=== PATIENT | male | born 1950 | race Hispanic/Latino ===

== ENCOUNTER 2019-10-18 09:43 | Observation (INO) | payer MEDICARE ==
[~2019-10-18] VITALS: Ht 167.6 cm; Wt 79.4 kg
[2019-10-18 10:35] LABS: BASOPHILS # (AUTO) 0.1 (0.0-0.1); BASOPHILS % 0.8 % (0.0-1.0); EOSINOPHILS # (AUTO) 0.1 (0.0-0.4); EOSINOPHILS % 1.7 % (0.0-6.0); HEMATOCRIT 38.1 % (38.2-49.6); HEMOGLOBIN 13.2 g/dL (14.0-18.0); LYMPHOCYTES # (AUTO) 1.7 (1.0-3.2); LYMPHOCYTES % 21.8 % (18.0-39.1); MEAN CORPUSCULAR HGB CONC 34.6 g/dL (31-35); MEAN CORPUSCULAR VOLUME 92.3 fL (81-99); MONOCYTES # (AUTO) 0.5 (0.2-0.8); MONOCYTES % 6.9 % (4.4-11.3); NEUTROPHILS # (AUTO) 5.4 (2.1-6.9); NEUTROPHILS % 68.5 % (38.7-80.0); PLATELET COUNT 229 x10e3/uL (140-360); RED BLOOD COUNT 4.13 x10e6/uL (4.3-5.7); RED CELL DISTRIBUTION WIDTH 12.2 % (11.7-14.4)
[2019-10-18 10:47] LABS: ALANINE AMINOTRANSFERASE 22 IU/L (0-55); ALBUMIN 4.1 g/dL (3.5-5.0); ALBUMIN/GLOBULIN RATIO 1.4 (0.8-2.0); ALKALINE PHOSPHATASE 77 IU/L (40-150); ANION GAP 13.7 mmol/L (8-16); BLOOD UREA NITROGEN 17 mg/dL (7-26); BUN/CREATININE RATIO 22 (6-25); CARBON DIOXIDE 22 mmol/L (22-29); CHLORIDE 107 mmol/L (98-107); CREATINE KINASE 132 IU/L (30-200); CREATININE, SERUM 0.78 mg/dL (0.72-1.25); EST GLOMERULAR FILTRATION RATE > 60 ML/MIN (60-); GLUCOSE 106 mg/dL (74-118); POTASSIUM 3.7 mmol/L (3.5-5.1); SODIUM 139 mmol/L (136-145)
--- NOTE | 2019-10-18 11:20 | Diagnostic Imaging Report ---
EXAMINATION: CHEST SINGLE (PORTABLE) INDICATION: Chest pain COMPARISON: None FINDINGS: LINES/TUBES:EKG leads overlie the chest. LUNGS:The lungs are well-inflated. No focal consolidation or pulmonary edema. PLEURA:No pleural effusion or pneumothorax. MEDIASTINUM:The cardiomediastinal silhouette appears normal in size and shape. BONES/SOFT TISSUES:No acute osseous injury. ABDOMEN:No free air under the diaphragm. IMPRESSION: No focal pneumonia or pulmonary edema. Signed by: Abisai Dawson MD on 10/18/2019 11:17 AM
--- NOTE | 2019-10-18 11:34 | Emergency Department Note ---
History of Present Illnes History of Present Illness Chief Complaint: General Medicine Complaints History of Present Illness This is a 69 year old male sent to the ED by primary care doctor for concerns of abnormal EKG and chest pain. Patient denies any complaints currently CT had intermittent chest pain earlier. EKG done a primary care is 's office shows sinus bradycardia at 53 bpm.. Chief Complaint Comment sent by dr maude hartley for abnormal ekg c/o constant non radiating cp started 2 days ago pt waited till he had appt with pcp denies sob denies bianchi/blurred/ringing in ears/back pain/jaw pain/abd pain c/o dizziness denies photosensitivity denies sensitivity to sound denies n/v states he is not currently dizzy former smoker denies etoh denies illegal drug use denies mi/cva hx of htn/cholesterol/bph culturalink used to translate Historian: Patient Arrival Mode: Car Teller Vault Required: No Onset (how long ago): hour(s) Radiation: Reports non-radiation Onset quality: unable to specify Progression: unable to specify Past Medical/Family History Physician Review I have reviewed the patient's past medical and family history. Any updates have been documented here. Past Medical History Recent Fever: No Clinical Suspicion of Infectio: No New/Unexplained Change in Ment: No Past Medical History: Hypertension, Hyperlipedemia Other Medical History: bph Past Surgical History: Appendectomy Social History Physically hurt or threatened: No Review of Systems Review of Systems Constitutional: Reports as per HPI EENTM: Reports no symptoms Cardiovascular: Reports as per HPI, Reports chest pain Respiratory: Reports no symptoms Gastrointestinal: Reports no symptoms Genitourinary: Reports no symptoms Musculoskeletal: Reports no symptoms Integumentary: Reports no symptoms Neurological: Reports no symptoms Psychological: Reports no symptoms Endocrine: Reports no symptoms Hematological/Lymphatic: Reports no symptoms Physical Exam Related Data Allergies: Coded Allergies: No Known Allergies (Unverified , 10/18/19) Triage Vital Signs Vital Signs Date Time Temp Pulse Resp B/P (MAP) Pulse Ox O2 Delivery O2 Flow Rate FiO2 10/18/19 09:48 97.9 74 18 124/64 100 Room Air Vital signs reviewed: Yes Physical Exam CONSTITUTIONAL Constitutional: Present well-developed, Present well-nourished HENT HENT: Present normocephalic, Present atraumatic, Present oropharynx clear/moist, Present nose normal HENT L/R: Present left ext ear normal, Present right ext ear normal EYES Eyes: Reports PERRL, Reports conjunctivae normal NECK Neck: Present ROM normal PULMONARY Pulmonary: Present effort normal, Present breath sounds normal CARDIOVASCULAR Cardiovascular: Present regular rhythm, Present heart sounds normal, Present capillary refill normal, Present normal rate GASTROINTESTINAL Abdominal: Present soft, Present nontender, Present bowel sounds normal GENITOURINARY Genitourinary: Present exam deferred SKIN Skin: Present warm, Present dry MUSCULOSKELETAL Musculoskeletal: Present ROM normal NEUROLOGICAL Neurological: Present alert, Present oriented x 3, Present no gross motor or sensory deficits PSYCHOLOGICAL Psychological: Present mood/affect normal, Present judgement normal Results Laboratory Result Diagram: 10/18/19 1000 10/18/19 1000 Laboratory Laboratory Tests Test 10/18/19 10:00 White Blood Count 7.80 x10e3/uL (4.8-10.8) Red Blood Count 4.13 x10e6/uL (4.3-5.7) Hemoglobin 13.2 g/dL (14.0-18.0) Hematocrit 38.1 % (38.2-49.6) Mean Corpuscular Volume 92.3 fL (81-99) Mean Corpuscular Hemoglobin 32.0 pg (28-32) Mean Corpuscular Hemoglobin Concent 34.6 g/dL (31-35) Red Cell Distribution Width 12.2 % (11.7-14.4) Platelet Count 229 x10e3/uL (140-360) Neutrophils (%) (Auto) 68.5 % (38.7-80.0) Lymphocytes (%) (Auto) 21.8 % (18.0-39.1) Monocytes (%) (Auto) 6.9 % (4.4-11.3) Eosinophils (%) (Auto) 1.7 % (0.0-6.0) Basophils (%) (Auto) 0.8 % (0.0-1.0) Neutrophils # (Auto) 5.4 (2.1-6.9) Lymphocytes # (Auto) 1.7 (1.0-3.2) Monocytes # (Auto) 0.5 (0.2-0.8) Eosinophils # (Auto) 0.1 (0.0-0.4) Basophils # (Auto) 0.1 (0.0-0.1) Absolute Immature Granulocyte (auto 0.02 x10e3/uL (0-0.1) Sodium Level 139 mmol/L (136-145) Potassium Level 3.7 mmol/L (3.5-5.1) Chloride Level 107 mmol/L (98-107) Carbon Dioxide Level 22 mmol/L (22-29) Anion Gap 13.7 mmol/L (8-16) Blood Urea Nitrogen 17 mg/dL (7-26) Creatinine 0.78 mg/dL (0.72-1.25) Estimat Glomerular Filtration Rate > 60 ML/MIN (60-) BUN/Creatinine Ratio 22 (6-25) Glucose Level 106 mg/dL (74-118) Calcium Level 9.0 mg/dL (8.4-10.2) Total Bilirubin 0.5 mg/dL (0.2-1.2) Aspartate Amino Transf (AST/SGOT) 22 IU/L (5-34) Alanine Aminotransferase (ALT/SGPT) 22 IU/L (0-55) Alkaline Phosphatase 77 IU/L (40-150) Creatine Kinase 132 IU/L (30-200) Creatine Kinase MB 1.50 ng/mL (0-5.0) Troponin I 0.008 ng/mL (0-0.300) Total Protein 7.1 g/dL (6.5-8.1) Albumin 4.1 g/dL (3.5-5.0) Globulin 3.0 g/dL (2.3-3.5) Albumin/Globulin Ratio 1.4 (0.8-2.0) Lab results reviewed: Yes Imaging Imaging results reviewed: Yes Procedures 12 Lead ECG Interpretation ECG Interpretation : ECG: ECG 1 Teller Vault: Interpreted by ED physician Rhythm: sinus rhythm Rate: normal QRS axis: normal ST segments normal: Yes T waves normal: Yes Clinical Impression: normal ECG Assessment & Plan Medical Decision Making MDM 69-year-old male sent from his primary care doctor's office for abnormal EKG. Patient noted asymptomatic sinus bradycardia. Blood pressure is normal. No cause of infection appreciated on labwork. Patient admitted for serial cardiac enzymes and telemetry monitoring. Dr. Vergara accepted consult, further consultation for cardiology to be done by primary team Assessment & Plan Final Impression: (1) Bradycardia (2) Chest pain Depart Disposition: ADMITTED Last Vital Signs Date Time Temp Pulse Resp B/P (MAP) Pulse Ox O2 Delivery O2 Flow Rate FiO2 10/18/19 09:48 97.9 74 18 124/64 100 Room Air HESHAM ALATORRE DO Oct 18, 2019 11:34
--- OUTSIDE RECORDS SUMMARY | 2019-10-18 11:35 | XMS REPORT | Summary of Care ---
Author Author JAMES Vanegas, MIGUEL SYLVESTER Organization Unknown Address Unknown Phone Unavailable Care Team Providers Care Tactical Air Control Party Manager Name Role Phone JAMES Vanegas, MARVIN Unavailable Unavailable FAB CAI MD Unavailable Unavailable MARVIN RAMIREZ MD Unavailable Unavailable Unavailable Unavailable Functional Status Name Dates Details Functional status health issues are not documented Status: Name Dates Details Cognitive status health issues are not d ocumented Status: Problems Name Dates Details Hypertension, benign (401.1, I10) Status: Active Hyperlipidemia, mild (272.4, E78.5) Status: Active Elevated prostate specific antigen (PSA) (790.93, R97.20) Status: Active Benign localized hyperplasia of prostate with urinary obstruction (600.21, N40.1) Status: Active Medications Name Dates Details Tamsulosin HCl - 0.4 MG Oral Capsule TAKE 1 CAPSULE DAILY Quantity: 30 JAMES Vanegas, RUN * Start : 19-Jan-2018 Active Finasteride 5 MG Oral Tablet TAKE 1 TABLET BY MOUTH EVERY DAY * Quantity: 30 Refills: 0 JAMES Vanegas, RUN * Start : 19-Jan-2018 Active Naproxen Sodium 500 MG TBCR TAKE 1 TABLET TWICE DAILY * Refills: 0 Active Sulfamethoxazole-Trimethoprim 800-160 MG Oral Tablet TAKE 1 TABLET TWICE DAILY * Quantity: 10 Refills: 0 JAMES Vanegas, RUN * Start : 01-May-2018 Active Allergies and Adverse Reactions Name Dates Details No Known Drug Allergies (Allergy) Status : Active Procedures Procedure Dates Details History of Appendectomy Completed Immunization Name Dates Details Immunizations not documented Social History Name Dates Details - Status: Name Dates Details Unknown if ever smoked Vital Signs Date Test Result Details [id number] BP Systolic 147 mm[Hg] Status: Comments: Lo cation: LUE; Position: Sitting BP Diastolic 73 mm[Hg] Status: Comments: Lo cation: LUE; Position: Sitting Height 66 in Status: Weight 186 lb Status: Body Mass Index Calculated 30.02 kg/m2 Status: Body Surface Area Calculated 1.94 m2 Status: Temperature 98.6 f Status: Comments: Me thod: Temporal Heart Rate 64 /min Status: Results Date Description Value Details Results not documented Plan of Care Name Dates Details Planned Observations Planned Goals not documented Planned Encounters Appointment; MARVIN RAMIREZ M.D. On: 22-Nov-2019 13:00 Interventions Provided Plan* 3 mo. follow up of button TURP for BPH * -pt reports improved symptoms. urination 2x during day and 2x during night * -discontinue tamsulosin and finasteride and see if symptoms are still good. * -RTC in 1 year for continued follow up or PRN Instructions Name Dates Details Instructions not documented Encounters Appointment; JAEL VILLEDA M. D. Encounter Diagnosis: Problem not documented On: 19-Jan-2018 13:30 Appointment; MARVIN RAMIREZ M.D. Encounter Diagnosis: Problem not documented On: 19-Jan-2018 13:45 Appointment; MARVIN RAMIREZ M.D. Encounter Diagnosis: Problem not documented On: 20-Mar-2018 13:30 Appointment; MARVIN RAMIREZ M.D. Encounter Diagnosis: Problem not documented On: 01-May-2018 14:00 Appointment; MARVIN RAMIREZ M.D. Encounter Diagnosis: Problem not documented On: 29-May-2018 14:15 Appointment; MARVIN RAMIREZ M.D. Encounter Diagnosis: Problem not documented On: 11-Aug-2018 10:00 Appointment; UROLOGY, NURSE Encounter Diagnosis: Problem not documented On: 17-Aug-2018 10:30 Appointment; MARVIN RAMIREZ M.D. Encounter Diagnosis: Problem not documented On: 27-Nov-2018 14:45
--- OUTSIDE RECORDS SUMMARY | 2019-10-18 11:35 | XMS REPORT | Continuity of Care Document ---
Author Author [facility] t Organization [facility] Address [address] [place] [address] Phone Unavailable Care Team Providers Care Pourer Off Name Role Phone Fede ALATORRE Attphys Unavailable MARVIN RAMIREZ M.D. Attphys Unavailable UROLOGY, NURSE Attphys Unavailable JAEL VILLEDA M.D. Attphys Unavailab YUE Dexter Admphys Unavailable Problems Condition Name Condition Details Condition Category Status Onset Date Resolution Date Last Treatment Date Treating Clinician Comments Source Hypertension, benign Hypertension, benign Problem Active [facility] Hyperlipidemia, mild Hyperlipidemia, mild Problem Active [facility] Benign localized hyperplasia of prostate with urinary obstruction Benign localized hyperplasia of prostate with urinary obstruction Problem Active [facility] Elevated prostate specific antigen (PSA) Elevated pros wood specific antigen (PSA) Problem Active [facility] Allergies, Adverse Reactions, Alerts This patient has no known allergies or adverse reactions. Medications Ordered Medication Name Filled Medication Name Start Date Stop Da te Current Medication? Ordering Clinician Indication Dosage Frequency Signature (SIG) Comments Components Source Sulfamethoxazole-Trimethoprim 800-160 MG Oral Tablet S ulfamethoxazole- Trimethoprim 800-160 MG Oral Tablet 2018-05-01 00:00:00 Yes MARVIN RAMIREZ M.D. 1 Q0.5D TAKE [address] [facility] Tamsulosin HCl - 0.4 MG Oral Capsule Tamsulosin HCl - 0.4 MG Oral Capsule 2018-01-19 00:00:00 Yes MARVIN RAMIREZ M.D. 1 QD TAKE 1 CAPS ULE DAILY [facility] Finasteride 5 MG Oral Tablet Finasteride 5 MG Oral Tablet 2018-01-05 5 00:00:00 Yes MARVIN RAMIREZ M.D. TAKE 1 TABLET BY MOUTH EVERY DAY [facility] Naproxen Sodium 500 MG TBCR Naproxen Sodium 500 MG TBCR Yes 1 Q0.5D TAKE 1 TABLET TWICE DAILY [facility] Vital Signs Vital Name Observation Time Observation Value Comments Source BP Systolic 2018-11-27 14:40:00 147 mm[Hg] Location: LUE; Positi on: Sitting [facility] BP Diastolic 2018-11-27 14:40:00 73 mm[Hg] Location: LUMikhail; Positi on: Sitting [facility] Height 2018-11-27 14:40:00 66 [in_us] [facility] Weight 2018-11-27 14:40:00 186 [lb_av] [facility] Body Mass Index Calculated 2018-11-27 14:40:00 30.02 kg/m2 [facility] Temperature 2018-11-27 14:40:00 98.6 [degF] Method: [facility] Heart Rate 2018-11-27 14:40:00 64 /min [facility] Procedures Procedure Date / Time Performed Performing Clinician Sour e History of Appendectomy [facility] Plan of Care Planned Activity Planned Date Details Comments Source Future Appointment 2019-11-22 13:00:00 [facility] Encounters Start Date/Time End Date/Time Encounter Type Admission Type Attendi [facility] Care Department Encounter ID Source 2018-11-27 14:45:00 2018-11-27 14:45:00 Appointment; MARVIN RAMIREZ M.D . WANG, RUN, M.D. [facility] Urology [facility] [id number] [facility] 2018-08-17 10:30:00 2018-08-17 10:30:00 Appointment; UROLOGY, NURSE UROLOGY, NURSE [facility] [id number] [facility] 2018-08-11 10:00:00 2018-08-11 10:00:00 Appointment; MARVIN RAMIREZ M.D . WANG, RUN, M.D. [facility] [id number] [facility] 2018-05-29 14:15:00 2018-05-29 14:15:00 Appointment; MARVIN RAMIREZ M.D . WANG, RUN, M.D. [facility] [id number] [facility] 2018-05-01 14:00:00 2018-05-01 14:00:00 Appointment; MARVIN RAMIREZ M.D . WANG, RUN, M.D. [facility] UTP [id number] [facility] 2018-03-20 13:30:00 2018-03-20 13:30:00 Appointment; MARVIN RAMIREZ M.D . WANG, RUN, M.D. [facility] UTP [id number] [facility] 2018-01-19 13:45:00 2018-01-19 13:45:00 Appointment; MARVIN RAMIREZ M.D . WANG, RUN, M.D. [facility] UTP [id number] [facility] 2018-01-19 13:30:00 2018-01-19 13:30:00 Appointment; JAEL CHRISTINE M.D. SAAVEDRA-BELAUNDE, JOSE, M.D. [facility] UTP [id number] 85 [facility] Results Test Description Test Time Test Comments Results Result Comments Source CHEST SINGLE (PORTABLE) 2019-10-18 11:17:00 [place] [address] Patient Name: MIGUEL BOWIE MR #: [id number] : 1950 Age/Sex: 69/M Req #: [id number] Adm Physician: Ordered by: HESHAM ALATORRE DO Report #: [id number] Location: ER Room/Bed: Procedure: [id number] DX/CHEST SINGLE (PORTABLE) Exam Date: 10/18/19 Exam Time: 1041 REPORT STATUS: Signed EXAMINATION: CHEST SINGLE (PORTABLE) INDICATION: Chest pain COMPARISON: None FINDINGS: LINES/TUBES:EKG leads overlie the chest. LUNGS:The lungs are well-inflated. No focal consolidation or pulmonary edema. PLEURA:No pleural effusion or pneumothorax. MEDIASTINUM:The cardiomediastinal silhouette appears normal in size and shape. BONES/SOFT TISSUES:No acute osseous injury. ABDOMEN:No free air under the diaphragm. IMPRESSION: No focal pneumonia or pulmonary edema. Signed by: Hollis Cool MD on 10/18/2019 11:17 AM Dictated By: HOLLIS COOL MD 16 Transcribed By: GEM on 10/18/191116 COPY TO: HESHAM ALATORRE,
--- OUTSIDE RECORDS SUMMARY | 2019-10-18 11:43 | XMS REPORT | Continuity of Care Document ---
Author Author [facility] t Organization [facility] Address [address] [place] [address] Phone Unavailable Care Team Providers Care Retoucher Photoengraving Name Role Phone Fede ALATORRE Attphys Unavailable MARVIN RAMIREZ M.D. Attphys Unavailable UROLOGY, NURSE Attphys Unavailable JAEL VILLEDA M.D. Attphys Unavailab YUE Dexter Admphys Unavailable Problems Condition Name Condition Details Condition Category Status Onset Date Resolution Date Last Treatment Date Treating Clinician Comments Source Hypertension, benign Hypertension, benign Problem Active [facility] Hyperlipidemia, mild Hyperlipidemia, mild Problem Active [facility] Benign localized hyperplasia of prostate with urinary obstruction Benign localized hyperplasia of prostate with urinary obstruction Problem Active [facility] Elevated prostate specific antigen (PSA) Elevated pros wood specific antigen (PSA) Problem Active [facility] Allergies, Adverse Reactions, Alerts [...] 1 Q0.5D TAKE 1 TABLET TWICE DAILY [facility] Tamsulosin HCl - 0.4 MG Oral Capsule Tamsulosin HCl - 0.4 MG Oral Capsule 2018-01-19 00:00:00 Yes MARVIN RAMIREZ M.D. 1 QD TAKE 1 CAPS ULE DAILY [facility] Finasteride 5 MG Oral Tablet Finasteride 5 MG Oral Tablet 2018-01-05 5 00:00:00 Yes MARVIN RAMIREZ M.D. TAKE 1 TABLET BY MOUTH EVERY DAY [facility] Naproxen Sodium 500 MG TBCR Naproxen Sodium 500 MG TBCR Yes 1 Q0.5D TAKE 1 TABLET TWICE DAILY [facility] Vital Signs Vital Name Observation Time Observation Value Comments Source BP Systolic 2018-11-27 14:40:00 147 mm[Hg] Location: LUE; Positi on: Sitting [facility] BP Diastolic 2018-11-27 14:40:00 73 mm[Hg] Location: LUMikhail; Positi on: Sitting [facility] Height 2018-11-27 14:40:00 66 [in_us] [facility] Weight 2018-11-27 14:40:00 186 [lb_av] [facility] Body Mass Index Calculated 2018-11-27 14:40:00 30.02 kg/m2 [facility] Temperature 2018-11-27 14:40:00 98.6 [degF] Method: [facility] Heart Rate 2018-11-27 14:40:00 64 /min [facility] Procedures Procedure Date / Time Performed Performing Clinician Sour e History of Appendectomy [facility] Plan of Care Planned Activity Planned Date Details Comments Source Future Appointment 2019-11-22 13:00:[facility] Encounters Start Date/Time End Date/Time Encounter Type Admission Type Attendi [facility] Care Department Encounter ID Source 2018-11-27 14:45:00 2018-11-27 14:45:00 Appointment; MARVIN RAMIREZ M.D . WANG, RUN, M.D. [facility] Urology [facility] [id number] [facility] 2018-08-17 10:30:00 2018-08-17 10:30:00 Appointment; UROLOGY, NURSE UROLOGY, NURSE [facility] [id number] [facility] 2018-08-11 10:00:00 2018-08-11 10:00:00 Appointment; MARVIN RAMIREZ M.D . WANG, RUN, M.[facility]. [facility] [id number] [facility] 2018-05-29 14:15:00 2018-05-29 14:15:00 Appointment; MARVIN RAMIREZ M.D . WANG, RUN, M.D. [facility] [id number] [facility] 2018-05-01 14:00:00 2018-05-01 14:00:00 Appointment; MARVIN RAMIREZ M.D . WANG, RUN, M.D. [facility] UTP [id number] [facility] 2018-03-20 13:30:00 2018-03-20 13:30:00 Appointment; MARVIN RAMIREZ M.D . WANG, RUN, M.D. [facility] UTP [id number] [facility] 2018-01-19 13:45:00 2018-01-19 13:45:00 Appointment; MARVIN RAMIREZ M.D . WANG, RUN, M.D. [facility] UTP [id number] [facility] 2018-01-19 13:30:00 2018-01-19 13:30:00 Appointment; JAEL CHRISTINE M.D. SAAVEDRA-BELAUNDE, JOSE, M.D. [facility] UTP [id number] 85 [facility] Results Test Description Test Time Test Comments Results Result Comments Source CHEST SINGLE (PORTABLE) 2019-10-18 11:17:00 [place] [address] Patient Name: MIGUEL BOWIE MR #: [id number] : 1950 Age/Sex: 69/M Req #: [id number] Adm Physician: Ordered by: HESHAM ALATORRE DO Report #: [id number] Location: ER Room/Bed: Procedure: [id number] DX/CHEST SINGLE (PORTABLE) Exam Date: 10/18/19 Exam [...] By: HOLLIS COOL MD 16 Transcribed By: EGM on 10/18/191116 COPY TO: HESHAM ALATORRE,
--- NOTE | 2019-10-18 13:16 | NUR ---
ASSUMED CARE. PATIENT ARRIVED TO UNIT AT APPROXIMATELY 1259. ACYANOTIC. NO DISTRESS NOTED. CALL LIGHT IN REACH. SIDE RAILS UP X2. BED LOW AND LOCKED.
[2019-10-18 13:30] VITALS: BP 145/79
[2019-10-18 16:38] VITALS: BP 137/75
[2019-10-18 17:05] LABS: CREATINE KINASE 115 IU/L (30-200)
[2019-10-18] MEDS ORDERED: FINASTERIDE5 MG PO (17:28)
[2019-10-18] MEDS ORDERED: PRAVACHOL40 MG PO (17:28)
[2019-10-18] MEDS ORDERED: AMLODIPINE BESY10 MG PO (17:28)
[2019-10-18] MEDS ORDERED: IBUPROFEN400 MG PO (17:28)
[2019-10-18] MEDS ORDERED: LISINOPRIL10 MG PO (17:28)
[2019-10-18] MEDS ORDERED: TRAZODONE HCL50 MG PO (17:28)
--- NOTE | 2019-10-18 18:11 | Consultation ---
DATE OF CONSULTATION: 10/18/2019 Cardiology Consult Note REASON FOR CONSULT: Chest pain. CHIEF COMPLAINT: Chest pain. HISTORY OF PRESENT ILLNESS: A 69-year-old man, history of hypertension, hyperlipidemia, presents with left-sided chest discomfort for the past 2 days. No associated shortness of breath. No previous history of CAD or ID. No history of diabetes. Remote history of smoking. Father from an ID. REVIEW OF SYSTEMS: As per HPI, otherwise negative. PAST MEDICAL HISTORY: As per HPI. SOCIAL HISTORY: Does not smoke, drink, or abuse drugs. FAMILY HISTORY: Father had ID and from it. OUTPATIENT MEDICATIONS: Reviewed. ALLERGIES: NO KNOWN ALLERGIES. PHYSICAL EXAMINATION: VITAL SIGNS: Temperature afebrile, pulse 62, respiratory rate 18, blood pressure 137/75, and saturating 98% on room air. GENERAL: Elderly male, in no acute distress. CARDIOVASCULAR: Regular rate and rhythm. No murmurs, rubs, or gallops. LUNGS: Clear to auscultation bilaterally. ABDOMEN: Soft, nontender, and nondistended. NEURO AND PSYCH: Alert and oriented to person, place, and time. Normal affect. INPATIENT MEDICATIONS: Reviewed. LABORATORY DATA: Reviewed. Troponins negative x1. IMAGING DATA: Reviewed. Chest x-ray normal. TELEMETRY DATA: Reviewed, shows normal sinus rhythm. ASSESSMENT AND PLAN: Chest pain. PLAN: Chest pain with typical and atypical features. Given his age and risk factors, we will plan for nuclear stress test tomorrow morning and please obtain an echocardiogram. Second set of cardiac enzymes to rule out for acute ID. Thank you for this consult. We will continue to follow. MD TERESSA Omalley/ALEXANDRA /[id number]
[2019-10-18 20:00] VITALS: BP 121/70
[2019-10-18 21:00] VITALS: BP 121/70
[2019-10-19] VITALS: BP 136/70
[2019-10-19] MEDS ORDERED: ONDANSETRON HCL INJ 2MG/ML 2ML 2 MG/ML VIAL IV PRN (00:45)
[2019-10-19] MEDS ORDERED: HYDRALAZINE HCL 20 MG/ML VIAL IV PRN (00:45)
[2019-10-19] MEDS ORDERED: ACETAMINOPHEN 325 MG TAB PO PRN ×2 (00:45)
[2019-10-19] MEDS ORDERED: TRAMADOL HCL 50 MG TAB PO PRN (00:45)
--- NOTE | 2019-10-19 01:03 | History and Physical ---
CHIEF COMPLAINT: Chest pain. HISTORY OF PRESENT ILLNESS: This is a 69-year-old male, who has a history of hypertension, hyperlipidemia, came into the ED with complaints of left-sided chest pain ongoing for the last 2-3 days. He denies any associated diaphoresis, nausea, or vomiting. He also denies any shortness of breath. No prior history of CAD or TN in the past. The patient was seen and evaluated at bedside on the medical floor. He is currently doing well with no other issues at this time. Cardiology has been consulted. REVIEW OF SYSTEMS: Pertinent positives: Chest pain. The rest of 14-point review of systems are reviewed with the patient and are negative. ALLERGIES: NO KNOWN DRUG ALLERGIES. HOME MEDICATIONS: 1. Amlodipine. 2. Finasteride. 3. Ibuprofen. 4. Lisinopril. 5. Pravastatin. 6. Trazodone. PAST MEDICAL HISTORY: BPH, hypertension, hyperlipidemia. PAST SURGICAL HISTORY: Reports none. FAMILY HISTORY: Hypertension and diabetes. SOCIAL HISTORY: No drugs. No alcohol. Does not smoke. Good social support. PHYSICAL EXAMINATION: VITAL SIGNS: Temperature is 97.5, pulse 62, respiratory rate is 18, blood pressure 137/75, pulse ox 98% on room air. GENERAL: Not in acute distress. Alert and oriented x3. He is cooperative on examination. HEENT: Head; normocephalic, atraumatic. Eyes; pupils are equal, round, and reactive to light bilaterally. Extraocular movements intact bilaterally. Throat; no evidence of erythema or exudates in the posterior pharynx. Has poor dentition. NECK: Supple. Good range of motion. PULMONARY: Clear to auscultation bilaterally. No wheezing, no rales, no rhonchi, no crackles appreciated. CARDIOVASCULAR: Positive S1 and S2. No murmurs, rubs, or gallops appreciated. ABDOMEN: Soft, nondistended, and nontender to palpation. Bowel sounds present. MUSCULOSKELETAL: Strength is 5/5 throughout. No evidence of any muscle deficits on examination. SKIN: Intact. Warm to touch. Good cap refill. PSYCHIATRIC: Normal affect and mood. EXTREMITIES: No edema. Good range of motion throughout. LABORATORY FINDINGS: Show white count 7.8, hemoglobin 13, hematocrit is 38, platelets of 229. Chemistry; sodium 139, potassium 3.7, chloride 107, bicarb 22, anion gap of 13, BUN 17, creatinine is 0.78, glucose is 106, calcium is 9, total bilirubin was 0.5, AST 22, ALT 22, alkaline phosphatase 77. CK 132. Troponins are all negative. Total protein 7.1, albumin is 4.1. SEROLOGY: Coronavirus is pending. IMAGING STUDIES: Chest x-ray, no focal pneumonia or pulmonary edema. IMPRESSION: 1. Chest pain, rule out acute coronary syndrome. 2. Hyperlipidemia. 3. Hypertension. PLAN: At this time, trend cardiac enzymes, aspirin, statin, cardioprotective medications. Cardiology consultation. He is scheduled for 2D echo and cardiac stress testing in the morning. Resume same home medications. Lovenox for DVT prophylaxis. Heart healthy diet. Otherwise, n.p.o. after midnight. MD AUGUSTUS Starkey/MODL /[id number]
[2019-10-19 01:25] LABS: CREATINE KINASE MB 1.4 ng/mL (0-5.0)
[2019-10-19 04:00] VITALS: BP 137/66
[2019-10-19 06:41] LABS: BASOPHILS # (AUTO) 0.1 (0.0-0.1); BASOPHILS % 0.6 % (0.0-1.0); EOSINOPHILS # (AUTO) 0.2 (0.0-0.4); EOSINOPHILS % 2.7 % (0.0-6.0); HEMOGLOBIN 14.2 g/dL (14.0-18.0); LYMPHOCYTES # (AUTO) 1.5 (1.0-3.2); LYMPHOCYTES % 17.1 % (18.0-39.1); MEAN CORPUSCULAR HEMOGLOBIN 31.5 pg (28-32); MEAN CORPUSCULAR HGB CONC 33.8 g/dL (31-35); MEAN CORPUSCULAR VOLUME 93.1 fL (81-99); MONOCYTES # (AUTO) 0.7 (0.2-0.8); MONOCYTES % 7.7 % (4.4-11.3); NEUTROPHILS # (AUTO) 6.3 (2.1-6.9); NEUTROPHILS % 71.4 % (38.7-80.0); PLATELET COUNT 232 x10e3/uL (140-360); RED BLOOD COUNT 4.51 x10e6/uL (4.3-5.7); RED CELL DISTRIBUTION WIDTH 12.4 % (11.7-14.4)
[2019-10-19 07:05] LABS: ALANINE AMINOTRANSFERASE 22 IU/L (0-55); ALBUMIN 3.9 g/dL (3.5-5.0); ALBUMIN/GLOBULIN RATIO 1.2 (0.8-2.0); ALKALINE PHOSPHATASE 79 IU/L (40-150); BLOOD UREA NITROGEN 17 mg/dL (7-26); BUN/CREATININE RATIO 20 (6-25); CARBON DIOXIDE 24 mmol/L (22-29); CHLORIDE 107 mmol/L (98-107); CREATININE, SERUM 0.83 mg/dL (0.72-1.25); EST GLOMERULAR FILTRATION RATE > 60 ML/MIN (60-); GLUCOSE 96 mg/dL (74-118); SODIUM 140 mmol/L (136-145)
[2019-10-19 08:52] VITALS: BP 137/74
[2019-10-19] MEDS ORDERED: TRAZODONE HCL 50 MG TAB PO SCH (09:00)
[2019-10-19] MEDS ORDERED: LISINOPRIL 10 MG TAB PO SCH (09:00)
[2019-10-19] MEDS ORDERED: FINASTERIDE 5 MG TAB PO SCH (09:00)
[2019-10-19] MEDS ORDERED: AMLODIPINE BESYLATE 10 MG TAB PO SCH (09:00)
--- NOTE | 2019-10-19 09:55 | NUR ---
PT OFF UNIT FOR PROCEDURE IN SAFE CONDITION.
[2019-10-19] MEDS ORDERED: REGADENOSON 0.4 MG/5 ML SYR IV ONE (10:03)
--- NOTE | 2019-10-19 10:13 | NUR ---
BEDSIDE SHIFT REPORT RECEIVED FROM THE DRY CLIPPER TENDER RN. EDUCATED PT ABOUT FALL PRECAUTIONS. PT VERBALIZED UNDERSTANDING. CALL LIGHT WITH IN EASY REACH. BED IS LOW AND LOCKED. SIDE RAILS X2. PT IS ON NPO. ALL SAFETY MEASURES IN PLACE. PT DENIES NEEDS AT THIS TIME. Addendum: 10/19/19 at 1055 by Kalee Feng RN TIME IS 0700 10/19/2019
[2019-10-19 13:05] VITALS: BP 137/66
--- NOTE | 2019-10-19 13:05 | NUR ---
PT IS BACK TO THE UNIT AFTER PROCEDURE. PT DENIES NEEDS AT THIS TIME.
[2019-10-19 16:13] VITALS: BP 131/73
--- NOTE | 2019-10-19 17:45 | NUR ---
SALUD TO D/C PT PER DR. CARL AND DR. Colleen MENEZES.
[2019-10-19] MEDS ORDERED: ASPIRIN81 MG (18:08)
[2019-10-19] MEDS ORDERED: ONDANSETRON HCL 4 MG ORAL DISINTEGRATING TAB PO PRN (18:30)
--- NOTE | 2019-10-19 18:34 | NUR ---
PT DISCHARGED HOME SAFELY WITH FAMILY MEMBER. PT ESCORTED VIA WHEEL CHAIR TO THE PRIVATE AUTO AT THE FRONT ENTRANCE. TELE AND IV REMOVED. TIP INTACT. DRESSING APPLIED. RX GIVEN. DISCHARGE INSTRUCTIONS GIVEN AND PT VERBALIZED UNDERSTANDING. PT DENIED FURTHER NEEDS.
[2019-10-19] MEDS ORDERED: SIMVASTATIN 20 MG TAB PO SCH (21:00)
--- NOTE | 2019-10-19 23:18 | Discharge Summary ---
FINAL DISCHARGE DIAGNOSES: 1. Chest pain, atypical in nature. 2. Hyperlipidemia. 3. Hypertension. CONSULTANTS: Cardiology. PHYSICAL EXAMINATION: VITAL SIGNS: Temperature is 97.8, pulse 76, respiratory rate is 18, blood pressure is 131/73, pulse ox 96% on room air. LABORATORY FINDINGS: Show white count 8.7, hemoglobin 14, hematocrit 42, platelets of 232. Chemistry; sodium 140, potassium 4, chloride 107, bicarb 24, anion gap of 13, BUN 17 and creatinine 0.83, glucose is 96, calcium is 9, total bilirubin is 0.4, AST 20, ALT 22, alkaline phosphatase 79. Troponins were negative x3. Albumin was 3.9. Coronavirus was pending on discharge. IMAGING STUDIES: Chest x-ray shows no focal pneumonia or pulmonary edema. Cardiac stress testing was found to be a normal study. HOSPITAL COURSE: A 69-year-old male, who came into the ED with complaints of chest pain. The patient was admitted under observation and Cardiology was consulted. Cardiac enzymes were found to be negative. The patient had a cardiac stress test, which was found to be normal. The patient did not need any further cardiac workup. In fact, the patient was doing well with no complaints and had no more chest pain prior to being discharged to home. The patient will be discharged on cardioprotective medications including aspirin and statin and resume same home medications. The patient was cleared for discharge by Cardiology. On the day of discharge, vital signs were stable, labs reviewed and stable. The patient was seen evaluated and examined thoroughly on the day of discharge. No other complaints. The patient verbalized understanding and agrees to plan of care to follow up accordingly as an outpatient with primary care physician in 1 week and the meat curer in 2 weeks' time. MEDICATIONS: See med reconciliation. DISPOSITION: Home. CONDITION: Stable. DIET: Heart healthy. In the event of any worsening symptoms, the patient was advised to come back to the ED for further evaluation. Discharge summary took greater than 30 minutes. MD AUGUSTUS Starkey/ALEXANDRA /[id number]
== END 2019-10-19 18:34 | disposition home or self-care (01) ==
LOC: ER 10:15 → ERHOLD 11:06 → INTOOBSV 11:06 → MED/SURG3 13:01
PROVIDERS: ADMIT Internal Medicine; ATTEND Internal Medicine
DX: R07.89 Other chest pain (principal); I10 Essential (primary) hypertension; E78.5 Hyperlipidemia, unspecified; N40.0 Benign prostatic hyperplasia without lower urinary tract symptoms; R00.1 Bradycardia, unspecified; Z83.3 Family history of diabetes mellitus; Z82.49 Family history of ischemic heart disease and other diseases of the circulatory system; Z11.59 Encounter for screening for other viral diseases
CPT/HCPCS: 36415 ×2; 71045; 78452; 80053 ×2; 82550 ×2; 82553 ×2; 84484 ×2; 85025 ×2; 93005; 93017; 99284; A9502; G0378 ×2; J2785; U0002